=== PATIENT | male | born 1985 | race Caucasian/White ===

== ENCOUNTER → 2017-05-21 | Outpatient (CLI) | payer OTHER ==
[~2017-05-21] MED LIST: Cymbalta60 MG PO; Percocet 5-3251 EACH PO; Ultram50 MG PO
[2017-05-21 16:22] LABS: Specimen Source URINE
[2017-05-22 13:04] LABS: Source Urine
== END | disposition home or self-care (01) ==
LOC: LAB EV 16:19
PROVIDERS: Internal Medicine
DX: S61.402A Unspecified open wound of left hand, initial encounter (principal); Z20.2 Contact with and (suspected) exposure to infections with a predominantly sexual mode of transmission
CPT/HCPCS: 87070; 87075; 87077; 87147; 87186; 87205; 87491; 87591